=== PATIENT | female | born 2000 | race Caucasian/White ===

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

== ENCOUNTER 2019-04-26 04:04 | Outpatient (CLI) | payer MEDICAID ==
[2019-04-26 04:40] LABS: APPEARANCE,URINE CLOUDY; BILIRUBIN,URINE NEGATIVE (NEGATIVE); COLOR,URINE YELLOW; GLUCOSE, URINE NEGATIVE (NEGATIVE); KETONES,URINE 80 mg/dL (NEGATIVE); LEUKOCYTE ESTERASE,URINE SMALL (NEGATIVE); NITRITE,URINE NEGATIVE (NEGATIVE); PROTEIN,URINE NEGATIVE (NEGATIVE)
[2019-04-26 05:01] LABS: URINE AMPHETAMINES SCREEN NEGATIVE; URINE BARBITURATES SCREEN NEGATIVE; URINE BENZODIAZEPINES SCREEN NEGATIVE; URINE COCAINE SCREEN NEGATIVE; URINE MARIJUANA (THC) SCREEN NEGATIVE; URINE METHADONE SCREEN NEGATIVE; URINE PHENCYCLIDINE SCREEN NEGATIVE
--- NOTE | 2019-04-26 07:22 | Non Stress Test Report ---
Non Stress Test Datetime Report Generated by CPN: 04/26/2019 07:22 DEMOGRAPHIC EGA NST: 40.0 INDICATION Indication for Study (NST) Other: IUP at 40.0; reactive NST MONITORING Monitor Explained: Monitor Explained; Test Explained; Patient Verbalized Understanding Time on Monitor: 04/26/2019 04:22 Time off Monitor: 04/26/2019 05:50 NST Duration: 88 NST INTERVENTIONS NST Interventions: PO Hydration Physician Notified NST: Dr. Islas BABY A: [id number] BABY A Movement : Present Contraction Frequency : irregular FHR Baseline : 120 Accelerations : 15X15 Decelerations : None Variability : Moderate 6-25bpm NST Review: Meets Criteria for Reactive NST NST Review and Verified By : J.Field RN NST Results: Reactive NST REPORT Report Trigger: Send Report
== END 2019-04-26 07:18 | disposition home or self-care (01) ==
LOC: LC 04:04
PROVIDERS: ATTEND Obstetrics & Gynecology Gynecology
PROC: 4A1HXCZ Monitoring of Products of Conception, Cardiac Rate, External Approach (ICD-10-PCS; principal; 2019-04-26)
DX: O48.0 Post-term pregnancy (principal); Z3A.40 40 weeks gestation of pregnancy
CPT/HCPCS: 59025; 80307; 81005

== ENCOUNTER 2019-04-27 12:44 | Inpatient (IN) | payer MEDICAID ==
[2019-04-27] MEDS ORDERED: RINGERS SOLUTION,LACTATED 1,000 ML IV ONE (13:04)
[2019-04-27] MEDS ORDERED: RINGERS SOLUTION,LACTATED 1,000 ML IV PRN (13:04)
[2019-04-27] MEDS ORDERED: OXYTOCIN 10 UNIT/ML VIAL ONE (13:13)
[2019-04-27] MEDS ORDERED: MISOPROSTOL 0.2 MG TABLET ONE (13:13)
[2019-04-27] MEDS ORDERED: LIDOCAINE 1% INJ-PF (10 MG/ML) 30 ML SDV ONE (13:13)
[2019-04-27] MEDS ORDERED: OXYTOCIN/NORMAL SALINE 20 UNIT/1,000 ML RTUINJ ONE (13:14)
[2019-04-27 13:19] LABS: APPEARANCE,URINE CLOUDY; BILIRUBIN,URINE NEGATIVE (NEGATIVE); COLOR,URINE AMBER; GLUCOSE, URINE NEGATIVE (NEGATIVE); KETONES,URINE 80 mg/dL (NEGATIVE); LEUKOCYTE ESTERASE,URINE LARGE (NEGATIVE); NITRITE,URINE NEGATIVE (NEGATIVE); PROTEIN,URINE 100 mg/dL (NEGATIVE); URINE SPECIFIC GRAVITY 1.024
[2019-04-27 13:38] LABS: URINE AMPHETAMINES SCREEN NEGATIVE; URINE BARBITURATES SCREEN NEGATIVE; URINE BENZODIAZEPINES SCREEN NEGATIVE; URINE COCAINE SCREEN NEGATIVE; URINE MARIJUANA (THC) SCREEN NEGATIVE; URINE METHADONE SCREEN NEGATIVE; URINE PHENCYCLIDINE SCREEN NEGATIVE
[2019-04-27] MEDS ORDERED: EPHEDRINE SULFATE INJ 50 MG/1 ML AMPULE ONE (13:44)
[2019-04-27] MEDS ORDERED: BUPIVACAINE HCL 0.25 % INJ/PF (2.5 MG/1 ML) 30 ML VIAL ONE (13:45)
[2019-04-27] MEDS ORDERED: FENTANYL/BUPIVACAINE/NS/PF 300 MCG/150 ML RTUINJ EPI ONE (13:45)
[2019-04-27 13:52] LABS: ABSOLUTE BASOPHILS # (AUTO) 0.1 10^3/uL (0.0-0.2); ABSOLUTE LYMPHOCYTES (AUTO) 2.3 10^3/uL (0.5-4.7); ABSOLUTE MONOCYTES (AUTO) 0.6 10^3/uL (0.1-1.4); ABSOLUTE NEUT (AUTO) 13.2 10^3/uL (1.7-8.2); BASOPHILS % (AUTO) 0.4 % (0-2); HEMATOCRIT 37.6 % (36.0-47.0); HEMOGLOBIN 13.3 g/dL (12.0-15.5); MEAN CORPUSCULAR HEMOGLOBIN 31.1 pg (27.0-33.4); MEAN CORPUSCULAR HGB CONC 35.4 g/dL (32.0-36.0); MEAN CORPUSCULAR VOLUME 88 fl (80-97); MONOCYTES % (AUTO) 3.4 % (3-13); PLATELET COUNT 252 10^3/uL (150-450); RED BLOOD COUNT 4.28 10^6/uL (3.72-5.28); RED CELL DISTRIBUTION WIDTH 14.3 % (11.5-14.0); SEGMENTED NEUTROPHILS % (AUTO) 82.2 % (42-78); TOTAL CELLS COUNTED % (AUTO) 100 %; WHITE BLOOD COUNT 16.1 10^3/uL (4.0-10.5)
--- NOTE | 2019-04-27 14:09 | Admission Physical ---
Datetime Report Generated by CPN: 04/27/2019 14:08 CURRENT ADMISSION Hx Assessment: The History has been Reviewed and is Current Chief Complaint: Uterine Contractions Chief Complaint Other: at 40.1 wks EGA with contractions 5 min apart or less for greater than an hour. Reports they are painful. NO LOF or VB.Good FM Admit Impression : Term, Intrauterine ; Active Labor; Intact Membranes; Admit Plan: Admit to Unit; Initiate Protocol ALLERGIES Medication Allergies: No Medication Allergies: No Known Allergies (04/27/2019) Latex: No Latex Allergies OBSTETRICAL HISTORY EDC: 04/26/2019 00:00 : 3 Para: 1 Term: 1 : 0 SAB: 0 IAB: 0 Ectopic: 0 Livin Cesareans: 1 VBACs: 0 Multiple Births: 0 Gestational Diabetes: No Rh Sensitization: No Incompetent Cervix: No MARTIN: No Infertility: No ART Treatment: No Uterine Anomaly: No IUGR: No Hx Previous C/S: Yes Macrosomia: No Hx Loss/Stillborn: No PIH: No Hx : No Placenta Previa/Abruption: No Depression/PP Depression: No PTL/PROM: No Post Hemorrhage: No Current Procedures: Ultrasound; NST Obstetrical History Comments: G1- C/SECTION- DISTRESS G2- SAB G3- CURRENT SEE RECORDS Alcohol: No Marijuana : No Cocaine: No Other Illicit Drugs: No Cigarettes: Never Smoker. [id number] MEDICAL HISTORY Diabetes: No Blood Transfusion: No Pulmonary Disease (Asthma, TB): Yes Breast Disease: No Hypertension: No Scenic Artist Surgery: No Heart Disease: No Hosp/Surgery: Yes Autoimmune Disorder: No Anesthetic Complications: No Kidney Disease: No Abnormal Pap Smear: No Neuro/Epilepsy: No Psychiatric Disorders: No Other Medical Diseases: No Hepatitis/Liver Disease: No Significant Family History: No Varicosities/Phlebitis: No Trauma/Violence : No Thyroid Dysfunction: No Medical History Comments: C/SECTION INFECTIOUS HISTORY Gonorrhea: No Genital Herpes: No Chlamydia: No Tuberculosis: No Syphilis: No Hepatitis: No HIV/AIDS Exposure: No Rash or Viral Illness: No HPV: No PHYSICAL EXAM General: Normal HEENT: Normal Neurologic: Normal Thyroid: Normal Heart: Normal Lungs: Normal Breast: Normal Back: Normal Abdomen: Normal Genitourinary Exam: Normal Extremities: Normal DTRs: Normal Pelvic Type: Adequate Vital Signs: Reviewed VAGINAL EXAM Dilatation: 6 Effacement: 90 Station: -2 Contraction Comments: every 3 minutes MEMBRANES Pooling: Negative Membranes: Intact FETUS A EGA: 40.1 Monitoring: External US FHR- Baseline: 125 Variability: Moderate 6-25bpm Accelerations: Prolonged Decelerations: None FHR Category: Category I Presentation: Vertex Admit Comment: at 40.1 wks EGA with contractions 5 min apart or less for greater than an hour. Reports they are painful. NO LOF or VB.Good FM. Hx of one prior CS for non-reassuring heart rate after "getting medicine for pain" . Now desires TOLAC -Admit to LDR -IVFs : LR at 125 cc/hr after bolus of one liter. NPO -CEFM and toco -GBS negative -Discssed risks, benefits and alterative of repeat section rather than trial of labor after delivery. Desires trial of labor. All consents signed -Desires epidural -Anticipate Vaginal after delivery. PLANS FOR LABOR AND DELIVERY Labor and Delivery: None Pain Management: Epidural Feeding Preference: Breast Circumcision: Yes INFORMED CONSENT Informed Consent Obtained: Section Delivery; Vaginal After ; Risks, Benefits and Alternatives Discussed Signature: with User ID: [email or web address] : with User ID: [email or web address]
[2019-04-27] MEDS ORDERED: BENZOCAINE/MENTHOL AEROSOL SPRAY 56 ML ONE (16:26)
[2019-04-27] MEDS ORDERED: IBUPROFEN 800 MG TABLET ONE (16:26)
[2019-04-27] MEDS ORDERED: ACETAMINOPHEN WITH CODEINE #3 TABLET PO PRN ×2 (16:28)
[2019-04-27] MEDS ORDERED: BENZOCAINE/MENTHOL AEROSOL SPRAY 56 ML TOP PRN (16:28)
[2019-04-27] MEDS ORDERED: NA PHOS,M-B/NA PHOS,DI-BA (ADULT) 133 ML ENEMA PR PRN (16:28)
[2019-04-27] MEDS ORDERED: PROMETHAZINE HCL 25 MG TABLET PO PRN (16:28)
[2019-04-27] MEDS ORDERED: PROMETHAZINE HCL 25 MG SUPP.RECT PR PRN (16:28)
[2019-04-27] MEDS ORDERED: ZOLPIDEM TARTRATE 5 MG TABLET PO PRN (16:28)
[2019-04-27] MEDS ORDERED: ACETAMINOPHEN 650 MG SUPP.RECT PR PRN (16:28)
[2019-04-27] MEDS ORDERED: GLYCERIN/WITCH HAZEL LEAF 1 EACH MED..WIPE TP PRN (16:28)
[2019-04-27] MEDS ORDERED: MEASLES,MUMPS&RUBELLA VACC/PF 0.5 ML VIAL SUBCUT PRN (16:28)
[2019-04-27] MEDS ORDERED: PSEUDOEPHEDRINE HCL 30 MG TABLET PO PRN (16:28)
[2019-04-27] MEDS ORDERED: DIBUCAINE 1% OINTMENT 28 GM TP PRN (16:28)
[2019-04-27] MEDS ORDERED: OXYTOCIN/NORMAL SALINE 20 UNIT/1,000 ML RTUINJ IV PRN (16:28)
[2019-04-27] MEDS ORDERED: PROMETHAZINE HCL INJ 25 MG/1 ML VIAL IV PRN (16:28)
[2019-04-27] MEDS ORDERED: DIPHENHYDRAMINE HCL 25 MG CAPSULE PO PRN (16:28)
[2019-04-27] MEDS ORDERED: DIPH/PERTUSS(ACELL)/TETANUS VAC/PF 0.5 ML SYR (>=10YO) IM PRN (16:28)
[2019-04-27] MEDS ORDERED: MAGNESIUM HYDROXIDE SUSP 30 ML UDCUP PO PRN (16:28)
--- NOTE | 2019-04-27 16:57 | Warning Signs in Babies ---
VOD Warning Signs Datetime Report Generated by [facility]: 04/27/2019 16:57 VOD#608 -Warning Signs in Babies: Viewed with Parent(s)/Family (04/27/2019 16:35:Anila Adkins RN)
[2019-04-27] MEDS ORDERED: IBUPROFEN 800 MG TABLET PO ONE (17:00)
--- NOTE | 2019-04-27 17:46 | Delivery Summary ---
Del Sum A-C Datetime Report Generated by CPN: 04/27/2019 17:45 DELIVERY PERSONNEL DELIVERY PERSONNEL: [id number] Delivery Doctor:: Roseline Beth MD Labor and Delivery Nurse:: Anila Adkins RNextractor operator helper Nurse:: Franchesca De La Torre RN Electron Beam Operator/JOINT RUNNER: Elvia Rodas, FIREARMS INSPECTOR Additional Personnel: : Alejandra Morton RN MATERNAL INFORMATION Delivery Anesthesia: Epidural Medications After Delivery: Pitocin Bolus-Please Comment; Pitocin Drip 20 Units/1000ml NSS Estimated Blood Loss (ml): 300 cc Delivery QBL: 75 Maternal Complications: None Complication Details: TOLAC Provider Comments: Called to patients room completely dilated with urge to push. She pushed for approximately 15 minutes and make good progress to +3. heart rate noted to go down in the 90s with contraction and O2 placed by FM on patient, bolus started and FHR returned to 115-120s. With next contraction and pushing the same occurred. Discussed use of Kiwi Vacuum to assist and Mother was in favor after review of risk/benefits. Kiwi applied approx 2cm anterior to posterior fontanell over the sagittal suture. Pressure to green range and gentle traction with maternal pushing x 2 pushes. Head delivered easily, shoulders and rest of body then delivered. Cord doubly clamped and cut. Tone decreased so no delayed cord cutting. Pulse noted normal and retracting in attempt to breath. Grunting/coughing with oral suctioning. Handed off to RN awaiting. Placenta spontaneously delivered. Uterus firm with Pitocin running. Repair of bilateral labial lacerations as above. Mother and stable. Infant to New born nursery for observation. LABOR SUMMARY EDC: 04/26/2019 00:00 No. Babies in Womb: 1 Attempted: Yes Labor Anesthesia: Epidural LABOR INFORMATION Reason for Induction: Not Applicable Onset of Labor: 04/27/2019 13:02 Complete Dilatation: 04/27/2019 15:28 Oxytocin: N/A Group B Beta Strep: Negative Antibiotics # of Doses: 0 Steroids Given: None Reason Steroids Not Administered: Not Applicable MEMBRANES Membranes Rupture Method: Artificial Rupture of Membranes: 04/27/2019 14:46 Length of Rupture (hr): 1.18 Amniotic Fluid Color: Clear Amniotic Fluid Amount: Moderate Amniotic Fluid Odor: None STAGES OF LABOR Stage 1 hr: 2 Stage 1 min: 26 Stage 2 hr: 0 Stage 2 min: 29 Stage 3 hr: 0 Stage 3 min: 11 Total Time in Labor hr: 3 Total Time in Labor min: 6 VAGINAL DELIVERY Episiotomy: None Laceration Extension #1: First Degree Other Laceration: BILAT FIRST DEGREE LABIAL LAC Laceration Repair: Yes Laceration Repair Note: Repaired bilaterally with 3-0 chromic suture in running fashion Sponge Count Correct: Yes Sharps Count Correct: Yes CSECTION DELIVERY Primary Indication: N/A Secondary Indication: N/A CSection Incidence: N/A Labor: N/A Elective: N/A CSection Incision: N/A BABY A INFORMATION Delivery Date/Time: 04/27/2019 15:57 Method of Delivery: Vaginal Nurse Controlled Delivery: No Born in Route : No : Successful Forceps: N/A Vacuum Extraction: Successful Shoulder Dystocia : No PRESENTATION/POSITION BABY A Presentation: Cephalic Cephalic Presentation: Vertex Vertex Position: Right Occipital Anterior Breech Presentation: N/A PLACENTA INFORMATION BABY A Placenta Delivery Time : 04/27/2019 16:08 Placenta Method of Delivery: Spontaneous Placenta Status: Delivered SCORES BABY A Heart Rate 1 min: >100 bpm Resp Effort 1 min: Absent Reflex Irritability 1 min: Grimace Muscle Tone 1 min: Flaccid Color 1 min: Blue/Pale Resuscitation Effort 1 min: Tactile Stimulation; Oxygen; PPV/NCPAP SCORE 1 MIN: 3 Heart Rate 5 min: >100 bpm Resp Effort 5 min: Good Cry Reflex Irritability 5 min: Cough or Sneeze or Pulls Away Muscle Tone 5 min: Active Motion Color 5 min: Body [place], Extremities Blue Resuscitation Effort 5 min: PPV/NCPAP SCORE 5 MIN: 9 INFANT INFORMATION BABY A Gestational Age at Delivery: 40.1 Gestational Status: Full Term- 39- 40.6 Weeks Outcome : Liveborn Infant Condition : Fair Sex: Male IDENTIFICATION BABY A Infant Verification Date/Time: 04/27/2019 16:18 ID Band Number: [id number] Mother's Name Verified: Yes RN Verifying Infant: Shahla Adkins Jonnathan SLAUGHTER RN WEIGHT/LENGTH BABY A Birthweight (gm): 3185 Infant Weight (lb): 7 Weight (oz): 0 Infant Length (in): 20.00 Infant Length (cm): 50.80 CORD INFORMATION BABY A No. Cord Vessels: 3 Nuchal Cord : Around Neck x1, Loose Cord Blood Taken: Yes-For Eval (Mom's Blood Type - or O+) Suction: Mouth; Nose ASSESSMENT BABY A Complications: None Physical Findings at Delivery: Within Normal Limits Infant Respirations: Intercostal Retractions Skin to Skin: No Heat Treat Worker/ALS Called : No Transferred To: Nursery RESUSCITATION BABY A Resuscitation Effort: Tactile Stimulation; PPV/NCPAP (Annotations: RN with infant at warmer at 1min of , nursery called and enroute to room to assist. PPV given appromixately 30 sec, nursery RN at bedside at 1min 37secs, infant started crying with tactile stimulation. PPV discontinued. Nursery assuming care of infant.) BABY B INFORMATION : N/A SIGNATURES Signature: with User ID: Charli : with User ID: [email or web address]
[2019-04-27] MEDS: DOCUSATE SODIUM 100 MG CAPSULE PO SCH (19:51)
[2019-04-27] MEDS: FERROUS SULFATE 325 MG TABLET PO SCH (19:51)
[2019-04-27] MEDS: FAMOTIDINE 20 MG TABLET PO SCH (22:53)
[2019-04-27] MEDS: IBUPROFEN 800 MG TABLET PO SCH (22:55)
[2019-04-28] MEDS: IBUPROFEN 800 MG TABLET PO SCH ×3 (05:50→21:09)
[2019-04-28 07:41] LABS: HEMATOCRIT 29.8 % (36.0-47.0); MEAN CORPUSCULAR HEMOGLOBIN 31.4 pg (27.0-33.4); MEAN CORPUSCULAR HGB CONC 35.6 g/dL (32.0-36.0); MEAN CORPUSCULAR VOLUME 88 fl (80-97); PLATELET COUNT 187 10^3/uL (150-450); RED BLOOD COUNT 3.38 10^6/uL (3.72-5.28); WHITE BLOOD COUNT 13.1 10^3/uL (4.0-10.5)
[2019-04-28 07:46] LABS: HEMOGLOBIN 10.6 g/dL (12.0-15.5)
[2019-04-28] MEDS: PRENATAL VITAMIN W DHA CAPSULE PO SCH (09:08)
[2019-04-28] MEDS: FERROUS SULFATE 325 MG TABLET PO SCH ×2 (09:08→17:40)
[2019-04-28] MEDS: DOCUSATE SODIUM 100 MG CAPSULE PO SCH ×2 (09:08→17:40)
[2019-04-28] MEDS: SENNOSIDES/DOCUSATE 8.6-50 MG 1 EACH TABLET PO SCH (09:08)
[2019-04-28] MEDS: FAMOTIDINE 20 MG TABLET PO SCH ×2 (09:10→21:09)
--- NOTE | 2019-04-28 09:47 | PDOC PROGRESS REPORT ---
Subjective-OB Progress Note for:: 04/28/19 Subjective: Doing well, , voiding, hsb at BS, no c/o Physical Exam (OB) Vital Signs: Temp Pulse Resp BP Pulse Ox 97.5 F 82 16 109/59 L 100 04/28/19 07:09 04/28/19 07:09 04/28/19 07:09 04/28/19 07:09 04/28/19 07:09 Intake & Output 04/27/19 04/28/19 04/29/19 05:59 06:59 06:59 Intake Total Output Total Balance Weight - PIH/Pre-Eclampsia Headache: Absent Epigastric Pain: No Visual Changes: No - Lochia Lochia Amount: Scant < 10 ml Lochia Color: Rubra/Red - Abdomen Description: Soft Hernia Present: No Fundal Description: Firm, Midline Fundal Height: u/u - u/2 Objective-Diagnostic Laboratory: 04/28/19 06:39 04/27/19 04/27/19 04/27/19 12:51 13:26 13:26 WBC 16.1 H RBC 4.28 Hgb 13.3 Hct 37.6 MCV 88 MCH 31.1 MCHC 35.4 RDW 14.3 H Plt Count 252 Seg Neutrophils % 82.2 H Urine Color FARTNU Urine Appearance CLOUDY Urine pH 6.0 Ur Specific [place] 1.024 Urine Protein 100 H Urine Glucose (UA) NEGATIVE Urine Ketones 80 H Urine Blood LARGE H Urine Nitrite NEGATIVE Ur Leukocyte Esterase LARGE H Blood Type O POSITIVE Antibody Screen NEGATIVE 04/28/19 06:39 WBC 13.1 H RBC 3.38 L Hgb 10.6 L D Hct 29.8 L MCV 88 MCH 31.4 MCHC 35.6 RDW 14.0 Plt Count 187 Seg Neutrophils % Urine Color Urine Appearance Urine pH Ur Specific [place] Urine Protein Urine Glucose (UA) Urine Ketones Urine Blood Urine Nitrite Ur Leukocyte Esterase Blood Type Antibody Screen Assessment and Plan(PN) - Assessment and Plan (1) (vaginal after ) Is this a current diagnosis for this admission?: Yes (2) Delivery normal Is this a current diagnosis for this admission?: Yes (3) Morbid obesity Is this a current diagnosis for this admission?: Yes (4) Bipolar 1 disorder Is this a current diagnosis for this admission?: Yes - Time Spent with Patient Time with patient: Less than 15 minutes Medications reviewed and adjusted accordingly: Yes - Disposition Anticipated Discharge: Home Within: within 24 hours
[2019-04-29] MEDS: IBUPROFEN 800 MG TABLET PO SCH (05:16)
[2019-04-29 08:23] VITALS: BP 127/69
--- NOTE | 2019-04-29 09:24 | PDOC DISCHARGE SUMMARY ---
Impression - Admit/DC Date/PCP Admission Date/Primary Care Provider: 04/27/19 13:05 JOSHUA JOHN PA-C Discharge Date: 04/29/19 - PP Day #2, doing well, no comnplaints - Additional Information Discharge Diet: As Tolerated, Regular Discharge Activity: Activity As Tolerated, No Lifting Over 10 Pounds, Pelvic Rest Referrals: [facility] [Provider Group] Prescriptions: Ibuprofen [Motrin 800 mg Tablet] 800 mg PO Q8 #60 tablet Home Medications: Prenat 115/Iron Fum/Folic/Dss [ 19 Tablet] 1 tab PO DAILY 02/21/17 Ibuprofen [Motrin 800 mg Tablet] 800 mg PO Q8 #60 tablet 04/29/19 HPI Reason(s) for Admission: Onset of Labor Procedures: Ultrasound Intrapartum Procedure(s): Other - successful Complication(s): Laceration-Vaginal Laceration-Degree: 1st Results Laboratory Results: WBC 13.1 10^3/uL (4.0-10.5) H 04/28/19 06:39 RBC 3.38 10^6/uL (3.72-5.28) L 04/28/19 06:39 Hgb 10.6 g/dL (12.0-15.5) L D 04/28/19 06:39 Hct 29.8 % (36.0-47.0) L 04/28/19 06:39 MCV 88 fl (80-97) 04/28/19 06:39 MCH 31.4 pg (27.0-33.4) 04/28/19 06:39 MCHC 35.6 g/dL (32.0-36.0) 04/28/19 06:39 RDW 14.0 % (11.5-14.0) 04/28/19 06:39 Plt Count 187 10^3/uL (150-450) 04/28/19 06:39 Lymph % (Auto) 14.0 % (13-45) 04/27/19 13:26 Christian % (Auto) 3.4 % (3-13) 04/27/19 13:26 Eos % (Auto) 0.0 % (0-6) 04/27/19 13:26 Baso % (Auto) 0.4 % (0-2) 04/27/19 13:26 Absolute Neuts (auto) 13.2 10^3/uL (1.7-8.2) H 04/27/19 13:26 Absolute Lymphs (auto) 2.3 10^3/uL (0.5-4.7) 04/27/19 13:26 Absolute Monos (auto) 0.6 10^3/uL (0.1-1.4) 04/27/19 13:26 Absolute Eos (auto) 0.0 10^3/uL (0.0-0.6) 04/27/19 13:26 Absolute Basos (auto) 0.1 10^3/uL (0.0-0.2) 04/27/19 13:26 Seg Neutrophils % 82.2 % (42-78) H 04/27/19 13:26 Urine Color FARTUN 04/27/19 12:51 Urine Appearance CLOUDY 04/27/19 12:51 Urine pH 6.0 (5.0-9.0) 04/27/19 12:51 Ur Specific [place] 1.024 04/27/19 12:51 Urine Protein 100 mg/dL (NEGATIVE) H 04/27/19 12:51 Urine Glucose (UA) NEGATIVE mg/dL (NEGATIVE) 04/27/19 12:51 Urine Ketones 80 mg/dL (NEGATIVE) H 04/27/19 12:51 Urine Blood LARGE (NEGATIVE) H 04/27/19 12:51 Urine Nitrite NEGATIVE (NEGATIVE) 04/27/19 12:51 Urine Bilirubin NEGATIVE (NEGATIVE) 04/27/19 12:51 Urine Urobilinogen 2.0 mg/dL (<2.0) H 04/27/19 12:51 Ur Leukocyte Esterase LARGE (NEGATIVE) H 04/27/19 12:51 Urine Ascorbic Acid NEGATIVE (NEGATIVE) 04/27/19 12:51 Urine Opiates Screen NEGATIVE 04/27/19 12:51 Urine Methadone Screen NEGATIVE 04/27/19 12:51 Ur Barbiturates Screen NEGATIVE 04/27/19 12:51 Ur Phencyclidine Scrn NEGATIVE 04/27/19 12:51 Ur Amphetamines Screen NEGATIVE 04/27/19 12:51 U Benzodiazepines Scrn NEGATIVE 04/27/19 12:51 Urine Cocaine Screen NEGATIVE 04/27/19 12:51 U Marijuana (THC) Screen NEGATIVE 04/27/19 12:51 RPR NONREACTIVE (NONREACTIVE) 04/27/19 13:26 Blood Type O POSITIVE 04/27/19 13:26 Antibody Screen NEGATIVE 04/27/19 13:26 Plan Plan of Treatment: d/c home, f/up with [facility] in 4 weeks for PP check
[2019-04-29] MEDS: SENNOSIDES/DOCUSATE 8.6-50 MG 1 EACH TABLET PO SCH (10:24)
[2019-04-29] MEDS: PRENATAL VITAMIN W DHA CAPSULE PO SCH (10:24)
[2019-04-29] MEDS: FERROUS SULFATE 325 MG TABLET PO SCH (10:24)
[2019-04-29] MEDS: DOCUSATE SODIUM 100 MG CAPSULE PO SCH (10:24)
[2019-04-29] MEDS: FAMOTIDINE 20 MG TABLET PO SCH (10:47)
== END 2019-04-29 12:05 | disposition home or self-care (01) | DRG 807 ==
LOC: LC 12:44 → LR 13:05 → 2S 19:43
PROVIDERS: ADMIT Obstetrics & Gynecology; ATTEND Obstetrics & Gynecology
PROC: 10D07Z6 Extraction of Products of Conception, Vacuum, Via Natural or Artificial Opening (ICD-10-PCS; principal; 2019-04-27)
PROC: 0HQ9XZZ Repair Perineum Skin, External Approach (ICD-10-PCS; 2019-04-27)
DX: O34.211 Maternal care for low transverse scar from previous cesarean delivery (principal); Z37.0 Single live birth; O69.81X0 Labor and delivery complicated by cord around neck, without compression, not applicable or unspecified; N85.8 Other specified noninflammatory disorders of uterus; O70.0 First degree perineal laceration during delivery; Z3A.40 40 weeks gestation of pregnancy
CPT/HCPCS: 36415; 80307; 81005; 85025; 85027; 86592; 86850; 86900; 86901; 90715; J2590; J3010; J3490

== ENCOUNTER 2019-08-11 21:44 | Emergency (ER) | payer MEDICAID ==
--- NOTE | 2019-08-11 22:07 | ER Document Report ---
ED Medical Screen (RME) - General Chief Complaint: Possible Overdose Stated Complaint: POSSIBLE OVERDOSE Time Seen by Provider: 08/11/19 21:56 Primary Care Provider: JOSHUA JOHN PA-C [Primary Care Provider] - Follow up as needed Mode of Arrival: Ambulatory Information source: Patient Notes: Pt presents to the ED with c/o possible overdose. Pt took approximately 14 tablets of control pills. She states she did this because she had tested positive for yesterday and her told her to "get rid of it". Patient reports that she has a 3-year-old and a 3-month-old baby at home and although she does not want to terminate this possible she states that her and her are not in the position to have another baby. She denies any suicidal intent. She is very tearful in triage and not making good eye contact. She reports she feels safe at home and is not abused. She reports that she took the pills around noon today. She passed out a few hours later and has been feeling dizzy ever since. I am initiating the overdose work-up to make sure that patient did not overdose on anything else. I did contact poison control, they have told me that if she overdosed on the Ortho Tri-Cyclen control pills alone there are no recommendations from their standpoint. I have greeted and performed a rapid initial assessment of this patient. A comprehensive ED assessment and evaluation of the patient, analysis of test results and completion of the medical decision making process will be conducted by additional ED providers. I have specifically instructed the patient or family members with the patient to immediately return to any nursing staff should anything change in the patient's condition or with their chief complaint. TRAVEL OUTSIDE OF THE [place] IN LAST 30 DAYS: No - Related Data Allergies/Adverse Reactions: No Known Allergies Allergy (Verified 04/27/19 12:57) Past Medical History Pulmonary Medical History: Reports: Hx Asthma Neurological Medical History: Denies: Hx Seizures Renal/ Medical History: Denies: Hx Peritoneal Dialysis Musculoskeltal Medical History: Denies Hx Arthritis Psychiatric Medical History: Reports: Hx Bipolar Disorder, Hx Depression Past Surgical History: Reports: Hx Adenoidectomy, Hx Tonsillectomy. Denies: Hx Hysterectomy - Immunizations Immunizations up to date: Yes Hx Diphtheria, Pertussis, Tetanus Vaccination: Yes Physical Exam - Vital signs Vitals: Temp Pulse Resp BP Pulse Ox 98.6 F 92 18 104/78 98 08/11/19 21:51 08/11/19 21:51 08/11/19 21:51 08/11/19 21:51 08/11/19 21:51 Course - Vital Signs Vital signs: Temp Pulse Resp BP Pulse Ox 98.6 F 92 18 104/78 98 08/11/19 21:51 08/11/19 21:51 08/11/19 21:51 08/11/19 21:51 08/11/19 21:51 Doctor's Discharge - Discharge Referrals: JOSHUA JOHN PA-C [Primary Care Provider] - Follow up as needed
[2019-08-11 23:04] LABS: APPEARANCE,URINE SLIGHTLY-CLOUDY; BILIRUBIN,URINE NEGATIVE (NEGATIVE); COLOR,URINE YELLOW; GLUCOSE, URINE NEGATIVE (NEGATIVE); KETONES,URINE NEGATIVE (NEGATIVE); LEUKOCYTE ESTERASE,URINE NEGATIVE (NEGATIVE); NITRITE,URINE NEGATIVE (NEGATIVE); PROTEIN,URINE NEGATIVE (NEGATIVE); URINE SPECIFIC GRAVITY 1.031; UROBILINOGEN,URINE NEGATIVE mg/dL (<2.0)
[2019-08-11 23:05] LABS: ABSOLUTE BASOPHILS # (AUTO) 0.1 10^3/uL (0.0-0.2); ABSOLUTE EOSINOPHILS # (AUTO) 0.1 10^3/uL (0.0-0.6); ABSOLUTE LYMPHOCYTES (AUTO) 3.8 10^3/uL (0.5-4.7); ABSOLUTE MONOCYTES (AUTO) 0.5 10^3/uL (0.1-1.4); ABSOLUTE NEUT (AUTO) 6.2 10^3/uL (1.7-8.2); BASOPHILS % (AUTO) 0.5 % (0-2); EOSINOPHILS % (AUTO) 0.8 % (0-6); HEMATOCRIT 43.6 % (36.0-47.0); HEMOGLOBIN 15.1 g/dL (12.0-15.5); LYMPHOCYTES % (AUTO) 35.7 % (13-45); MEAN CORPUSCULAR HEMOGLOBIN 29.8 pg (27.0-33.4); MEAN CORPUSCULAR HGB CONC 34.8 g/dL (32.0-36.0); MEAN CORPUSCULAR VOLUME 86 fl (80-97); MONOCYTES % (AUTO) 4.9 % (3-13); PLATELET COUNT 332 10^3/uL (150-450); RED BLOOD COUNT 5.08 10^6/uL (3.72-5.28); RED CELL DISTRIBUTION WIDTH 13.8 % (11.5-14.0); SEGMENTED NEUTROPHILS % (AUTO) 58.1 % (42-78); TOTAL CELLS COUNTED % (AUTO) 100 %; WHITE BLOOD COUNT 10.7 10^3/uL (4.0-10.5)
[2019-08-11 23:13] LABS: ALBUMIN 4.8 g/dL (3.5-5.0); ALKALINE PHOSPHATASE 79 U/L (38-126); ANION GAP 8 (5-19); ASPARTATE AMINO TRANSFERASE 21 U/L (14-36); BLOOD UREA NITROGEN 11 mg/dL (7-20); CALCIUM 10.1 mg/dL (8.4-10.2); CARBON DIOXIDE 30 mmol/L (22-30); CHLORIDE 103 mmol/L (98-107); GLUCOSE 88 mg/dL (75-110); POTASSIUM 4.8 mmol/L (3.6-5.0); TOTAL PROTEIN 8.1 g/dL (6.3-8.2)
[2019-08-11 23:18] LABS: ACETAMINOPHEN < 10 ug/mL (10-30); ALCOHOL < 10 mg/dL (NONE DETECTED); SALICYLATE < 1.0 mg/dL (2.0-20.0)
[2019-08-11 23:22] LABS: URINE AMPHETAMINES SCREEN NEGATIVE; URINE BARBITURATES SCREEN NEGATIVE; URINE BENZODIAZEPINES SCREEN NEGATIVE; URINE COCAINE SCREEN NEGATIVE; URINE MARIJUANA (THC) SCREEN NEGATIVE; URINE METHADONE SCREEN NEGATIVE; URINE PHENCYCLIDINE SCREEN NEGATIVE
--- NOTE | 2019-08-12 00:47 | ER Document Report ---
Entered by MADDIE DE LA CRUZ SCRIBE 08/12/19 0015 Acting as scribe for:JAMEY JAMES IV, MD ED Substance Abuse / Acc. OD - General Chief Complaint: Overdose Stated Complaint: POSSIBLE OVERDOSE Time Seen by Provider: 08/11/19 21:56 Primary Care Provider: JOSHUA JOHN PA-C [Primary Care Provider] - Follow up as needed Mode of Arrival: Ambulatory Information source: Patient Notes: This 19 year old female patient presents to the ED today with complaints of possible overdose that occurred around 1200 today. Patient states that she was x2 weeks late on taking her control, so she decided to take x14 tablets of Ortho Tri-cyclen at one time to "catch up." She denies trying to terminate a possible or suicidal ideation. She reports that she felt dizzy a few hours after taking the control tablets, but states that she feels fine at this time. Denies nausea or vomiting. TRAVEL OUTSIDE OF THE [place] IN LAST 30 DAYS: No - Related Data Allergies/Adverse Reactions: No Known Allergies Allergy (Verified 04/27/19 12:57) Past Medical History - General Information source: Patient - Social History Smoking Status: Never Smoker Cigarette use (# per day): No Chew tobacco use (# tins/day): No Smoking Education Provided: No Frequency of alcohol use: None Drug Abuse: None Lives with: Family Family History: Reviewed & Not Pertinent, CAD, CVA, Malignancy, Other - MS Patient has suicidal ideation: No Patient has homicidal ideation: No Pulmonary Medical History: Reports: Hx Asthma Psychiatric Medical History: Reports: Hx Bipolar Disorder, Hx Depression Past Surgical History: Reports: Hx Adenoidectomy, Hx Section, Hx Tonsillectomy - Immunizations Immunizations up to date: Yes Hx Diphtheria, Pertussis, Tetanus Vaccination: Yes Review of Systems - Review of Systems Constitutional: No symptoms reported EENT: No symptoms reported Cardiovascular: See HPI, Dizziness Respiratory: No symptoms reported Gastrointestinal: See HPI. denies: Nausea, Vomiting Genitourinary: No symptoms reported Female Genitourinary: No symptoms reported Musculoskeletal: No symptoms reported Skin: No symptoms reported Hematologic/Lymphatic: No symptoms reported Neurological/Psychological: See HPI. denies: Homicidal ideation, Suicidal ideation -: Yes All other systems reviewed and negative Physical Exam - Vital signs Vitals: Temp Pulse Resp BP Pulse Ox 98.6 F 92 18 104/78 98 08/11/19 21:51 08/11/19 21:51 08/11/19 21:51 08/11/19 21:51 08/11/19 21:51 Interpretation: Normal - General General appearance: Appears well, Alert In distress: None - HEENT Head: Normocephalic, Atraumatic Eyes: Normal Pupils: PERRL - Respiratory Respiratory status: No respiratory distress Chest status: Nontender Breath sounds: Normal Chest palpation: Normal - Cardiovascular Rhythm: Regular Heart sounds: Normal auscultation Murmur: No Friction rub: No Gallop: None auscultated - Abdominal Inspection: Normal Distension: No distension Bowel sounds: Normal Tenderness: Nontender - Abdomen soft Organomegaly: No organomegaly - Back Back: Normal, Nontender - Extremities General upper extremity: Normal inspection General lower extremity: Normal inspection - Neurological Neuro grossly intact: Yes Orientation: AAOx4 - Psychological Associated symptoms: Normal affect, Normal mood - Skin Skin Temperature: Warm Skin Moisture: Dry Skin Color: Normal Course - Re-evaluation Re-evalutation: 08/12/19 00:22 Results of ED MSE discussed with patient. All questions were answered prior to discharge. Emergency signs and symptoms, reasons to return to the emergency department discussed with patient. - Vital Signs Vital signs: Temp Pulse Resp BP Pulse Ox 98.1 F 82 20 120/69 100 08/12/19 00:48 08/12/19 00:48 08/12/19 00:48 08/12/19 00:48 08/12/19 00:48 - Laboratory Result Diagrams: 08/11/19 22:34 08/11/19 22:34 Laboratory results interpreted by me: 08/11/19 08/11/19 22:34 22:34 WBC 10.7 H Salicylates < 1.0 L Acetaminophen < 10 L - EKG Interpretation by Me Additional EKG results interpreted by me: 08/12/19 00:23 EKG obtained on 08/11/2019 at 2344 hrs. was interpreted by this MD. Findings: Normal sinus rhythm, rate 82, normal axis, P waves proceed QRS complexes, QRS complexes appear narrow, there are no obvious patterns of ST segment elevation or depression present to suggest acute myocardial ischemia or infarction. Impression normal sinus rhythm with nonspecific ST segments. Discharge - Discharge Clinical Impression: Accidental medication overdose Qualifiers: Encounter type: initial encounter Qualified Code(s): T50.901A - Poisoning by unspecified drugs, medicaments and biological substances, accidental (unintentional), initial encounter Condition: Stable Disposition: HOME, SELF-CARE Additional Instructions: Return to the Emergency Department without delay if any worse. Take your prescription medications only as prescribed. Do not try to "catch up" on missed doses. HOME CARE INSTRUCTIONS & INFORMATION: Thank you for choosing us for your medical needs. We hope you're satisfied with the care you received. After you leave, you must properly care for your problem and, at the same time, observe its progress. Any condition can change. Some illnesses can change rapidly over hours or days. If your condition worsens, return to the Emergency Department or see your physician promptly. ABOUT YOUR X-RAYS AND EKG'S: If you had an EKG or X-rays taken, they have been read by the Emergency Physician. The X-rays and EKG's will also be read by a Radiologist or Departure Clerk within 24 hours. If discrepancies are noted, you will be notified by telephone. Please be certain the ED has a correct telephone number & address where you can be reached. Also, realize that some fractures or abnormalities do not show up on initial X-rays. If your symptoms continue, see your physician. ABOUT YOUR LABORATORY TEST: If you had laboratory tests, the results have been reviewed by the Emergency Physician. Some test results (for example cultures) may not be available for several days. You will be contacted if any test result shows you need additional treatment. Please be certain the ED has a correct telephone number and address where you can be reached. ABOUT YOUR MEDICATIONS: You will receive instructions on how to take your me dicine on the prescription label you receive. Additional information may be provided by the Pharmacy. If you have questions afterwards, call the ED for clarification or further instructions. Some prescribed medications may cause drowsiness. Do not perform tasks such as driving a car or operating machinery without consulting your Pharmacist. If you feel you need a refill of pain medication, your condition will need re-evaluation. Please do not call for a refill of any medication. ABOUT YOUR SIGNATURE: Signature of this document acknowledges to followin. Understanding that you received emergency treatment and that you may be released before al medical problems are known or treated. Please be certain the ED has a correct phone number & address where you can be reached. 2. Acknowledgement that you will arrange for follow-up care as recommended. 3. Authorization for the Emergency Physician to provide information to your follow-up Physician in order to maximize your care. AT ANY TIME, IF YOUR SYMPTOMS CHANGE SIGNIFICANTLY OR WORSEN OR YOU DEVELOP NEW SYMPTOMS, RETURN TO THE EMERGENCY DEPARTMENT IMMEDIATELY FOR RE-EVALUATION. OUR GOAL IS TO PROVIDE EXCELLENT MEDICAL CARE! WE HOPE THAT WE HAVE MET YOUR EXPECTATIONS DURING YOUR EMERGENCY DEPARTMENT VISIT AND THAT YOU FEEL YOU HAVE RECEIVED EXCELLENT CARE! Referrals: JOSHUA JOHN PA-C [Primary Care Provider] - Follow up as needed I personally performed the services described in the documentation, reviewed and edited the documentation which was dictated to the scribe in my presence, and it accurately records my words and actions.
[2019-08-12 00:50] VITALS: BP 120/69
--- NOTE | 2019-08-12 06:06 | EKG REPORT ---
SEVERITY:- NORMAL ECG - SINUS RHYTHM : Confirmed by: Avery Riggs MD 12-Aug-2019 06:04:42
== END 2019-08-12 00:48 | disposition home or self-care (01) ==
LOC: ER 21:44
DX: T38.4X1A Poisoning by oral contraceptives, accidental (unintentional), initial encounter (principal); R42 Dizziness and giddiness; J45.909 Unspecified asthma, uncomplicated
CPT/HCPCS: 36415; 80053; 80307; 81001; 84703; 85025; 93005; 93010; 99284